=== PATIENT | male | born 1955 | race Caucasian/White ===

== ENCOUNTER → 2020-11-29 14:26 | Outpatient (CLI) | payer OTHER, SELFPAY ==
--- NOTE | 2020-11-29 | DI.ECHO.S_ITS ---
[facility]---------+ [facility] +---------+ : : [address] : : : : [id number] : : : : Phone: [phone]---------+ Echocardiogram Report + + :Name: CRISTIAN GEE Study Date: 11/29/2020 Height: 73 in : [facility] ReadingLocation: Weight: 275 lb : : Gender: Male BSA: 2.5 m2 : :: 1955 Age: 65 yrs BP: 114/72 mmHg: :Reason For Study: Arrhythmia, PVCs : :Ordering Physician: Marilee, : :Rashaad Hunter Performed By: Sanaz Her : + + Interpretation Summary 1) Normal left ventricular size, wall motion, and systolic function (EF 60- 65%). 2) Mildyl enlarged right ventricle with normal function. 3) No significant valvular abnormalities. 4) The aortic root is borderline dilated at 3.9cm. 5) No prior Echo available for comparison. Procedure: A two-dimensional transthoracic echocardiogram with color flow and Doppler was performed. The study quality was technically adequate. There is no prior echocardiogram noted for this patient. The patient was in normal sinus rhythm during the exam. The patient had occasional PVCs during the exam. Left Ventricle: Left ventricular size is at the upper limits of normal. Left ventricular wall thickness is mildly increased. There is no ventricular septal defect visualized. The ejection fraction is estimated to be 60-65%. There are no focal wall motion abnormalities. Diastolic parameters suggest probable normal left ventricular diastolic function and normal filling pressures. Right Ventricle: The right ventricle is mildly dilated. The right ventricular systolic function is normal. Atria: The left atrium is severely dilated. The right atrium is mildly dilated. Mitral Valve: The mitral valve is normal in structure and function. There is trace mitral regurgitation. Aortic Valve: The aortic valve is normal in structure and function. There is no aortic valve stenosis. No aortic regurgitation is present. Tricuspid Valve: The tricuspid valve leaflets are thin and pliable. Pulmonary artery pressures cannot be estimated because of the lack of a measurable TR jet velocity but the IVC suggests a CVP of around 3 mmHg. Pulmonic Valve: The pulmonic valve is normal in structure and function. There is no pulmonic valvular regurgitation. Great Vessels: The aortic root is borderline dilated. The ascending aorta is at the upper limits of normal in size. The aortic arch could not be visualized. The IVC is of normal diameter and collapses greater than 50% with a sniff. This suggests a low right atrial pressure of 3 mm Hg. Pericardium/ Pleura There is no pericardial effusion. MMode/2D Measurements & Calculations LVIDd: 5.8 cm LVOT diam: 2.3 cm LVIDs: 3.9 cm Ao root diam: 3.9 cm FS: 32.8 % asc Aorta Diam: 3.5 cm EPSS: 0.55 cm IVSd: 1.2 cm LVPWd: 1.1 cm LV chacon. diameter/BSA (cm/m^2): 2.4 LV sys. diameter/BSA (cm/m^2): 1.6 LA A2 area: 32.6 cm2 RA long axis: 6.0 cm LA A4 area: 27.1 cm2 RA area: 24.1 cm2 LA length (vol): 6.2 cm RA vol: 83.0 ml LA vol: 122.0 ml RA : 33.7 ml/m2 LA vol index: 49.5 ml/m2 IVC diam: 1.8 cm RVD1 (basal): 4.6 cm RVD2 (mid): 3.5 cm TAPSE: 3.1 cm Doppler Measurements & Calculations Ao V2 max: 136.8 cm/sec LVOT Max Indra: 104.2 cm/sec Ao V2 mean: 94.3 cm/sec LV V1 max P.3 mmHg Ao max P.5 mmHg LV V1 VTI: 22.0 cm Ao mean P.9 mmHg ORTIZ(I,D): 3.5 cm2 Ao V2 VTI: 26.7 cm ORTIZ(V,D): 3.2 cm2 sev ratio: 0.83 ORTIZ indexed to BSA (cm^2/m^2): 1.4 MV E max indra: 76.9 cm/sec PA V2 max: 63.2 cm/sec MV A max indra: 53.5 cm/sec PA V2 mean: 43.4 cm/sec MV E/A: 1.4 PA mean P.89 mmHg Med Peak E' Indra: 8.8 cm/sec PA pr(Accel): 16.1 mmHg E/E' med: 8.8 Lat Peak E' Indra: 9.5 cm/sec E/E' lat: 8.1 E/e' average: 8.4 MV dec time: 0.15 sec SV(LVOT): 93.5 ml Reading Physician:04:26 PM
== END ==
PROVIDERS: Referring Provider Internal Medicine Cardiovascular Disease; Visit Provider Internal Medicine Cardiovascular Disease
DX: I49.3 Ventricular premature depolarization (principal)
CPT/HCPCS: 93306

== ENCOUNTER → 2021-12-10 13:26 | Outpatient (CLI) | payer OTHER, SELFPAY ==
--- NOTE | 2021-12-10 13:29 | DI.RAD.S_ITS ---
PROCEDURE: XR LUMBAR SPINE MIN 4V INDICATIONS: BACK PAIN TECHNIQUE: Four views of the lumbar spine were acquired, including bilateral oblique views. COMPARISON: [facility], , XR LUMBAR SPINE 2 OR 3 VIEWS, 09/08/2017, 10:02. FINDINGS: Bones: 5 nonrib-bearing vertebrae are present. There is a mild leftward curvature of the lower lumbar spine centered at L4 which appears slightly increased from the prior study. There is minimal retrolisthesis at L1-L2 and L2-L3. There is multilevel mild to moderate degenerative disc disease throughout the lumbar spine. There is also mild to moderate facet arthropathy in the lower lumbar spine. No vertebral body compression fractures. No suspicious bony lesions. Soft tissues: Overlying bowel gas pattern is normal. No suspicious soft tissue calcifications. Oblique images: No definite pars defects. IMPRESSION: 1. No definite pars defects. 2. Mild leftward curvature of the lower lumbar spine appears slightly increased from the prior study. 3. Mild to moderate multilevel degenerative disc disease throughout the lumbar spine. 4. Minimal retrolisthesis at L1-L2 and L2-L3. Dictated by: Nathaniel Benton M.D. on 12/10/2021 at 15:29 Approved by: Nathaniel Benton M.D. on 12/10/2021 at 15:32
== END ==
PROVIDERS: PCP Family Medicine; Referring Provider Physical Medicine & Rehabilitation; Visit Provider Physical Medicine & Rehabilitation
DX: M51.36 Other intervertebral disc degeneration, lumbar region (principal); M54.9 Dorsalgia, unspecified
CPT/HCPCS: 72110

== ENCOUNTER → 2021-12-25 13:07 | Outpatient (CLI) | payer OTHER, SELFPAY | PROVIDERS: PCP Family Medicine; Referring Provider Physical Medicine & Rehabilitation; Visit Provider Physical Medicine & Rehabilitation | DX: Z96.649 Presence of unspecified artificial hip joint (principal); R26.89 Other abnormalities of gait and mobility; G57.22 Lesion of femoral nerve, left lower limb | CPT/HCPCS: 95886; 95910 ==

== ENCOUNTER → 2022-01-13 09:40 | Outpatient (CLI) | payer OTHER, SELFPAY ==
[2022-01-13 12:48] LABS: COVID19 -Nasal RAPID Negative (Negative)
== END ==
PROVIDERS: PCP Family Medicine; Visit Provider Physical Medicine & Rehabilitation
DX: Z20.822 Contact with and (suspected) exposure to COVID-19 (principal)
CPT/HCPCS: 87635; C9803

== ENCOUNTER 2022-01-15 08:15 | Outpatient (CLI) | payer OTHER, SELFPAY ==
[2022-01-15] VITALS (8 sets, daily range): BP systolic 109–136; BP diastolic 67–92; PULSE 54–64; RESP 12–24; TEMP 36.1; O2SAT 95–100
--- NOTE | 2022-01-15 08:16 | DI.RAD.S_ITS ---
PROCEDURE: PAIN L INTERLAMINAR/CAUDAL INJ INDICATIONS: SPONDYLOSIS COMPARISON: [facility], CR, XR LUMBAR SPINE MIN 4V, 12/10/2021, 13:40. [facility], MR, MR LUMBAR SPINE WITHOUT CONTRAST, 12/24/2021, 17:16. FINDINGS: Fluoroscopic spot filming was performed to verify placement of a spinal needle at the L2-L3 level, as labeled on the films. Appropriate location of the needle tip was confirmed by injection of iodinated contrast. IMPRESSION: Intraprocedural examination within normal limits. Dictated by: Kumar Zarate M.D. on 01/15/2022 at 11:18 Approved by: Kumar Zarate M.D. on 01/15/2022 at 11:18
[2022-01-15] MEDS: MIDAZOLAM 2 MG/2 ML VIAL IV (09:06)
[2022-01-15] MEDS: IOPAMIDOL 15 ML VIAL 3 ML INJ (09:13)
[2022-01-15] MEDS: BUPIVACAINE 0.25% (PF) VIAL 2 ML INJ (09:13)
[2022-01-15] MEDS: BETAMETHASONE 30 MG/5 ML MDV 6 MG INJ (09:14)
[2022-01-15] MEDS: DEXAMETHASONE 10 MG/ML VIAL 20 MG INJ (09:14)
--- NOTE | 2022-01-15 09:26 | P.PCN_ITS ---
Date/Time/Diagnoses Date of procedure: 01/15/22 Time of procedure: 09:26 Pre-procedure diagnosis: 1. HNP WITH RADICULAR FEATURES, 2. MULTILEVEL CENTRAL STENOSIS, Post-procedure diagnosis: same Procedure Notes Procedure: 1. FLUOROSCOPICALLY GUIDED CONTRAST CONTROLLED INTERLAMINAR EPIDURAL STEROID INJECTION - L2/3 Indications: Jordan is referred by Dr. Leavitt for treatment of Bilateral Foraminal Stenosis L>R LE symptoms. Physician: Aiden Guerrero Total Fluoroscopy time (seconds): 10 Total sedation minutes: 11 Complications: none Procedure in detail & Post-procedure care: FINDINGS Multilevel Central Spinal Stenosis with Nerve Root Compression DESCRIPTION OF PROCEDURE Fluoroscopically guided, contrast-controlled L2/3 translaminar epidural steroid injection. Following review of allergy and review of potential side effects and complications, including, but not necessarily limited to, infection, allergic reaction, local tissue breakdown, temporary as well as permanent nerve injury, paralysis, stroke and possible , the patient indicated that the patient understood and agreed to proceed. An informed consent document was signed by the patient, witnessed by a nurse, and placed in the patient's chart. Additionally, other treatment options including modalities, medications, and physical therapy were reviewed with the patient. After review of previous anaesthesic history and IV conscious sedation the patient was deemed safe to proceed with today?s procedure with IV conscious sedation as ASA class II designation. Safety time-out was performed to confirm patient ID, procedure to be performed and site of procedure. IV sedation was accomplished with a combination of 2mg Versed administered by the RN after DO order, titrated to patient comfort during the course of the procedure while the patient remained responsive to all verbal commands. In the prone position, following sterile prep and drape of the lumbar region,the L2/3 translaminar space was identified fluoroscopically. The skin was anesthetized via a 25-gauge, 1.5-inch needle with 1% lidocaine solution. At this point, a 22-gauge short bevel spinal needle was atraumatically introduced and advanced under fluoroscopic guidance into the region of the L2/3 translaminar space. Depth was confirmed on lateral view. Radiological data, including multiple fluoroscopic views of the lumbar spine, r eveal a spinal needle at the L2/3 translaminar space. Lateral views then show placement of the needle in the epidural space. Subsequent views show contrast material flowing superiorly and inferiorly in the epidural space. No vascular or intrathecal uptake is observed. At this point, using loss of resistance technique with saline and air, the epidural space was entered. This was confirmed following negative aspiration with injection of approximately 1.5 cc of Isovue 200, showing excellent epidural flow without vascular or intrathecal uptake. At this point, 1cc of 1% lidocaine solution combined with 3cc or 20mg of dexamethasone and 6mg of betamethasone was injected without incident. The patient tolerated the procedure well without signs or symptoms of complications prior to transfer to the recovery area continued monitoring without incident. The patient was then transferred to the recovery area where they were observed for an appropriate period of time after the injection. The patient reported a VAS score of 6 prior to the procedure and a post-procedure VAS of 0. POST OP INSTRUCTIONS The patient was provided a Pain Log to continue to record their response to the target-specific procedure prior to follow-up visit with their referring physician. Additionally, specific post-injection care instructions and a contact number to our office were provided if concerns arise regarding possible complications associated with the procedure are suspected.
== END 2022-01-15 09:40 | disposition home or self-care (01) ==
PROVIDERS: PCP Family Medicine; Referring Provider Physical Medicine & Rehabilitation; Visit Provider Physical Medicine & Rehabilitation
DX: M51.16 Intervertebral disc disorders with radiculopathy, lumbar region (principal); M48.061 Spinal stenosis, lumbar region without neurogenic claudication
CPT/HCPCS: 62323; 99152; J0702; J1100; J2250

== ENCOUNTER → 2023-05-04 13:43 | Outpatient (CLI) | payer MEDICARE, OTHER, SELFPAY ==
--- NOTE | 2023-05-05 23:58 | DI.NM.S_ITS ---
DATE OF SERVICE: 05/05/2023 PROCEDURE: Pharmacological perfusion study. INDICATIONS: PVCs. RADIOPHARMACEUTICAL: 26 millicurie technetium-99m Myoview IV was injected at stress and 26.9 millicurie technetium-99m Myoview IV was injected at rest. CARDIAC STRESS: The patient underwent IV Lexiscan perfusion study under the supervision of an attending staff as per standard protocol. The patient remained hemodynamically stable. Baseline rhythm was sinus with first-degree AV block. During stress, no convincing ischemic changes seen. No significant arrhythmias seen. No chest discomfort. Baseline blood pressure 150/100. Heart rate was 59 beats per minute. RAW DATA: Poor raw data study. There appears to be increased subdiaphragmatic activity. The patient's weight is 290 pounds. GATED STUDY: Resting LV ejection fraction 51% and stress LV ejection fraction 64% without any significant wall motion abnormality. Resting end-diastolic volume 161 mL. TID ratio 1.11, which is within normal limits. Lung/heart ratio 0.46, which is mildly abnormal. MYOCARDIAL PERFUSION SCAN: Stress supine, resting supine and stress prone images were compared to each other. There appears to be a small size, predominantly fixed, moderately decreased perfusion of basal inferior wall extending into the basal inferolateral wall as well as inferoapex without any significant reversible ischemia. CONCLUSION: 1. No obvious reversible ischemia. 2. There is a predominantly fixed, small size, moderately decreased perfusion of basal inferior wall extending into the basal inferolateral wall as well as inferoapex. The patient's weight is 290 pounds. On gated study, no obvious wall motion abnormalities. This could be due to persistent tissue attenuation artifact, however, cannot rule out previous nontransmural myocardial infarction. Lung/heart ratio 0.46, which is mildly abnormal. Consider 2D echo to rule out diastolic dysfunction or valvular pathology. Correlate clinically. Jordan Whitmore - DM/leeann/terence doc#: [id number]/job#: [id number] dd: 05/05/2023 17:15:00 dt: 05/05/2023 23:42:00 DICTATING MD/COPIES TO: Radha Padilla MD COPIES MNE: ALIDA;
== END ==
PROVIDERS: PCP Family Medicine; Referring Provider Internal Medicine Cardiovascular Disease; Visit Provider Internal Medicine Cardiovascular Disease
DX: I49.3 Ventricular premature depolarization (principal)
CPT/HCPCS: 78452; 93017; A9502; J2785